=== PATIENT | female | born 1990 | race Caucasian/White ===

== ENCOUNTER 2019-10-08 00:34 | Inpatient (IN) ==
[2019-10-08 01:44] LABS: Basophils # 0.1 K/mcL (0.0-0.2); Basophils % 0.4 %; Eosinophils # 0.1 K/mcL (0.0-0.6); Eosinophils % 0.7 %; Hematocrit 48.4 % (35.3-44.9); Hemoglobin 17.2 g/dL (11.5-15.4); Immature Granulocytes % 0.4 % (0-4); Lymphocytes # 4.8 K/mcL (0.6-4.6); Lymphocytes % 34.9 %; Mean Corpuscular HGB Conc 35.5 g/dL (31.6-35.5); Mean Corpuscular Hemoglobin 33.8 pg (28.0-33.3); Mean Corpuscular Volume 95.1 fL (83.0-100.0); Mean Platelet Volume 10.3 fL (9.4-12.4); Monocytes # 0.7 K/mcL (0.0-1.3); Monocytes % 4.9 %; Platelet Count 293 K/mcL (140-400); Red Blood Count 5.09 M/mcL (3.82-4.97); Red Cell Distribution Width 11.9 % (11.5-14.5); Segmented Neutrophils % 58.7 %; White Blood Count 13.6 K/mcL (4.3-11.1)
[2019-10-08 01:48] LABS: Amphetamine Screen,Urine Negative ng/mL (Cutoff=1000); Barbiturate Screen,Urine Negative ng/mL (Cutoff=200); Benzodiazepines Screen,Urine Positive ng/mL (Cutoff=200); Cannabinoid Screen,Urine Positive ng/mL (Cutoff = 50); Cocaine Screen,Urine Negative ng/mL (Cutoff= 300); Opiate Screen,Urine Negative ng/mL (Cutoff=300); Phencyclidine Screen,Urine Negative ng/mL (Cutoff=25)
[2019-10-08 01:52] LABS: Bacteria,Urine Few per hpf (None-Few); Bilirubin,Urine Negative (Negative); Blood,Urine Negative (Negative); Clarity,Urine Turbid (Clear); Color,Urine Yellow (Yellow); Glucose,Urine (UA) Normal (Normal); Ketones,Urine Negative (Negative); Leukocyte Esterase,Urine Negative (Negative); Mucus,Urine Many per lpf (None-Few); Nitrite,Urine Negative (Negative); Protein,Urine Trace mg/dL (Neg-Trace); RBC,Urine 0-3 per hpf (0-3); Specific Gravity,Urine 1.019 (1.010-1.025); Squamous Epithelial Cell,Urine Moderate per hpf (None-Few); Urobilinogen,Urine Normal (Normal)
[2019-10-08 01:57] LABS: Acetaminophen < 10 mcg/mL (10-20); BUN/Creatinine Ratio 11 (6-26); Blood Urea Nitrogen 9 mg/dL (6-20); Calcium 9.6 mg/dL (8.6-10.3); Carbon Dioxide 25 mEq/L (23-29); Chloride 102 mEq/L (98-107); Ethanol < 10 mg/dL (Less than 10); Glucose 89 mg/dL (70-105); Osmolality,Calculated 282 (280-300); Potassium 3.6 mEq/L (3.5-5.1); Salicylate < 2.5 mg/dL (15.0-30.0); Sodium 137 mEq/L (136-145); eGFR For African Americans > 60 (> 60); eGFR For Non-African Americans > 60 (> 60)
[2019-10-08] MEDS ORDERED: traZODone 50 MG TABLET PO PRN (02:50)
[2019-10-08] MEDS ORDERED: MOM Conc 10 ML UD.LIQ PO PRN (02:50)
[2019-10-08] MEDS ORDERED: *HR* LORazepam 2 MG/ML VIAL IM PRN (02:50)
[2019-10-08] MEDS ORDERED: Mag Hydrox/Al Hydrox/Simeth 30 ML UDC PO PRN (02:50)
[2019-10-08] MEDS ORDERED: *HR* LORazepam 1 MG TABLET PO PRN (02:50)
[2019-10-08] MEDS ORDERED: Acetaminophen 325 MG TABLET PO PRN (02:50)
[2019-10-08] MEDS ORDERED: hydrOXYzine pamoate 25 MG CAPSULE PO PRN (02:50)
[2019-10-08] MEDS: Nicotine 21 MG PATCH.TD24 TD SCH (12:11)
[2019-10-08] MEDS: diazePAM 10 MG TABLET PO PRN ×2 (18:01→21:40)
[2019-10-08] MEDS ORDERED: ARIPiprazole 5 MG TABLET PO SCH (21:00)
[2019-10-08] MEDS ORDERED: rOPINIRole 0.25 MG TABLET PO SCH (21:00)
[2019-10-08] MEDS ORDERED: traZODone 50 MG TABLET PO SCH (21:00)
[2019-10-08] MEDS: Gabapentin 300 MG CAPSULE PO SCH (21:36)
[2019-10-09] MEDS: Nicotine 21 MG PATCH.TD24 TD SCH (09:23)
[2019-10-09] MEDS: Gabapentin 300 MG CAPSULE PO SCH (09:27)
[2019-10-09 10:29] VITALS: BP 128/90
== END 2019-10-09 10:50 | disposition home or self-care (01) | DRG 885 ==
LOC: EMEROOARM 00:34 → 1ANU 02:47
PROVIDERS: ADMIT Psychiatry & Neurology Psychiatry; ATTEND Psychiatry & Neurology Psychiatry